=== PATIENT | male | born 1945 | race Caucasian/White ===

== ENCOUNTER 2021-12-25 13:17 | Emergency (ER) | payer MEDICARE, BC ==
[~2021-12-25] VITALS: Ht 188 cm; Wt 85.8 kg
[~2021-12-25 13:17] MED LIST: ATOR10TA87 PO; CHOL400T57 PO; FINA5TAB11 PO; FLO0.4C PO; LISI-644 PO; MAGN100T6; MULT-1085 PO; POLY17PO10 PO
--- NOTE | 2021-12-25 14:50 | NUR ---
STROKE ALERT [address] ALVARADO AWARE.
--- NOTE | 2021-12-25 15:07 | NUR ---
PATIENT TO CT.
[2021-12-25 15:16] LABS: BASOPHILS % (AUTO) 0.1 % (0-1); HEMOGLOBIN 13.2 g/dl (14.0-17.9); MEAN PLATELET VOLUME 7.3 FL (7.4-10.4)
[2021-12-25 15:17] LABS: BASOPHILS # (AUTO) 0.1 X10'3 (0-0.2); EOSINOPHILS # (AUTO) 0.1 X10'3 (0-0.9); EOSINOPHILS % (AUTO) 0.2 % (0-6); HEMATOCRIT 40.2 % (42.0-52.0); LYMPHOCYTES # (AUTO) 53.4 X10'3 (1.1-4.8); LYMPHOCYTES % (AUTO) 94.1 % (21-51); MEAN CORPUSCULAR HEMOGLOBIN 33.7 PG (27.0-31.0); MEAN CORPUSCULAR HGB CONC 32.7 g/dL (33.0-36.5); MEAN CORPUSCULAR VOLUME 103.2 FL (78-98); MONOCYTES # (AUTO) 0.5 X10'3 (0-0.9); MONOCYTES % (AUTO) 0.9 % (2-12); NEUTROPHILS # (AUTO) 2.7 X10'3 (1.8-7.7); NEUTROPHILS % (AUTO) 4.7 % (42-75); PLATELET COUNT 156 X10'3 (140-440); RED CELL DISTRIBUTION WIDTH 13.7 % (11.5-14.5)
[2021-12-25 15:24] LABS: APTT 29 SECONDS (22-32)
[2021-12-25 15:26] LABS: ALANINE AMINOTRANSFERASE 15 U/L (12-78); ALBUMIN 3.7 G/DL (3.4-5.0); ALBUMIN/GLOBULIN RATIO 1.3 (1.1-1.5); ALKALINE PHOSPHATASE 99 IU/L (46-116); ANION GAP 6 (8-16); ASPARTATE AMINO TRANSFERASE 11 U/L (10-37); BILIRUBIN,TOTAL 0.5 MG/DL (0.1-1.0); BLOOD UREA NITROGEN 17 MG/DL (7-18); BUN/CREATININE RATIO 21.5 (5.4-32.0); CALCIUM 8.7 MG/DL (8.5-10.1); CHLORIDE 103 MMOL/L (99-107); CREATININE 0.79 MG/DL (0.60-1.10); GLUCOSE 124 MG/DL (70-104); POTASSIUM 3.9 MMOL/L (3.5-5.1); SODIUM 137 MMOL/L (135-145); TOTAL CARBON DIOXIDE 27.7 MMOL/L (24-32); TOTAL PROTEIN 6.6 G/DL (6.4-8.2); eGFR > 90 ML/MIN
[2021-12-25 15:37] LABS: PLATELET ESTIMATE NORMAL; TOTAL CELLS COUNTED 100
[2021-12-25 15:42] LABS: WHITE BLOOD COUNT 56.8 X10'3 (4.5-11.0)
[2021-12-25] MEDS ORDERED: valacyclovir 500mg tablet PO STA (16:22)
[2021-12-25] MEDS ORDERED: iohexol 350MG/ML 100ml bottle IV ONE (17:02)
[2021-12-25] MEDS ORDERED: predniSONE 20 mg tablet PO ONE (17:35)
[2021-12-25 18:25] VITALS: BP 108/81
[2021-12-25] MEDS ORDERED: PRED20TA PO (18:59)
[2021-12-25] MEDS ORDERED: VALA100031 PO (18:59)
== END 2021-12-25 19:21 | disposition home or self-care (01) ==
LOC: ER 13:18
DX: G51.0 Bell's palsy (principal); E78.00 Pure hypercholesterolemia, unspecified; I10 Essential (primary) hypertension; Z85.9 Personal history of malignant neoplasm, unspecified; Z79.2 Long term (current) use of antibiotics; Z79.899 Other long term (current) drug therapy
CPT/HCPCS: 70450; 70487; 71045; 80053; 82948; 85007; 85025; 85610; 85730; 93005; 99285; J3490; J7512; Q9967

== ENCOUNTER 2022-03-27 13:35 | Emergency (ER) | payer MEDICARE, BC ==
[~2022-03-27 13:35] MED LIST changes: +VALA100031 PO
== END 2022-03-27 14:32 | disposition left against medical advice (07) ==
LOC: ER 13:35
DX: T81.9XXA Unspecified complication of procedure, initial encounter (principal); Z53.21 Procedure and treatment not carried out due to patient leaving prior to being seen by health care provider